=== PATIENT | female | born 1940 | race Caucasian/White ===

== ENCOUNTER → 2019-01-04 | Day surgery (SDC) | payer OTHER ==
[~2019-01-04] MED LIST: ACETAMINOPHEN 325 MG TABLET PO PRN; ALBUTEROL SULFATE 2.5 MG/3 ML NEBU. NEB PRN; ATROPINE 0.5 MG/5 ML DISP.SYRIN. IV PRN; FAMOTIDINE 20 MG/2 ML VIAL ONE; IV RINGERS SOLUTION,LACTATED 1,000 ML IV SCH; LIDOCAINE 2% PF Vial for OR 5 ML VIAL. ONE; MIDAZOLAM HCL PF 2 MG/2 ML VIAL. IV PRN; ONDANSETRON PF 4 MG/2 ML VIAL. IV PRN; ONDANSETRON PF 4 MG/2 ML VIAL. ONE; PHENOL ORAL SPRAY 177ML BOTTLE. MM PRN; PROPOFOL 40 ML IV ONE; SODIUM PHOSPHATES 19/7GM 133 ML ENEMA. ONE; SODIUM PHOSPHATES 19/7GM 133 ML ENEMA. PR ONE; diphenhydrAMINE 50 MG/ML VIAL IV PRN
[2019-01-04 13:40] VITALS: BP 119/83
--- NOTE | 2019-01-08 18:06 | PATHOLOGY ---
[facility] Accession Number: [id number] . 01 Material submitted: . PART A: stomach - ANTRUM BX PART B: colon - TRANSVERSE POLYP. Modifiers: transverse . 01 Clinical history: . GERD, Hx colon cancer . 02 Diagnosis: A. Gastric biopsies, antrum: - Chronic gastritis, mild. . B. Colon biopsy, transverse colon polyp: - Tubular adenoma. . (JPM:mml; 01/08/2019) M 01/08/2019 1113 Local . 02 Comment: Sections of the gastric biopsy reveal segments of gastric antral and antral/body transition mucosa showing focal congestion and patchy mild chronic inflammation. A properly-controlled immunoperoxidase stain for Helicobacter is negative for Helicobacter organisms. There is no evidence of malignancy. . Sections of the transverse colon biopsy reveal a tubular adenoma showing no evidence of high grade dysplasia or malignancy. . Special stain performed (A1): Immunoperoxidase stain for Helicobacter . (JPM:mml; 01/08/2019) . 02 Electronically signed: . Luis Cooley MD, Pathologist NPI- [id number] . 01 Gross description: . A. Received in formalin labeled "Giuliana Sharpe, antrum BX," are 2 segments of forte soft tissue measuring 0.9 x 0.2 x 0.2 cm in aggregate dimensions and ranging from 0.4 to 0.5 cm in maximum dimension. The specimen is submitted entirely in cassette A1. . B. Received in formalin labeled "Giuliana Sharpe, transverse polyp," is a single segment of forte soft tissue measuring 0.3 cm in maximum dimension. The specimen is entirely submitted in cassette B1. (TSD; 01/07/2019) TOB/TOB 01/07/2019 2211 Local . 02 Pathologist provided ICD-10: K29.50, D12.3 . 02 CPT . 018453, 142179, [id number] Specimen Comment: A courtesy copy of this report has been sent to [phone], [phone] Specimen Comment: [id number] Specimen Comment: Report sent to / DR CORREA Performed at: 01 [facility] [address], [place] [id number] MD Marco A Grey MD Phone: [phone] Performed at: 02 [facility] [address], [place] [id number] MD Luis Cooley MD Phone: [phone]
== END | disposition home or self-care (01) ==
LOC: SURG 10:51
PROVIDERS: ATTEND Internal Medicine Gastroenterology
DX: Z12.11 Encounter for screening for malignant neoplasm of colon (principal); D12.3 Benign neoplasm of transverse colon; K64.0 First degree hemorrhoids; K57.30 Diverticulosis of large intestine without perforation or abscess without bleeding; K22.2 Esophageal obstruction; K21.0 Gastro-esophageal reflux disease with esophagitis; K44.9 Diaphragmatic hernia without obstruction or gangrene; Z85.038 Personal history of other malignant neoplasm of large intestine; K29.50 Unspecified chronic gastritis without bleeding; Z91.041 Radiographic dye allergy status; Z88.8 Allergy status to other drugs, medicaments and biological substances
CPT/HCPCS: 43239; 45380; J2405; J2704; J3490; J7120; J2001